=== PATIENT | female | born 1955 | race Caucasian/White ===

== ENCOUNTER 2020-03-01 21:10 | Observation (INO) ==
[2020-03-01 22:33] LABS: Basophils % 0.2 % (0.0-0.8); Eosinophils # 0.1 10*3/uL (0.0-0.87); Eosinophils % 0.8 % (0.00-10.9); Hematocrit 32.4 VOL% (35.7-47.0); Hemoglobin 10.9 GM/DL (12.0-16.0); Immature Granulocytes % 0.7 %; Immature Granulocytes Absolute 0.07 #; Mean Corpuscular HGB Conc 33.6 GM/DL (32-36); Mean Corpuscular Volume 93.4 FL (87-102); Mean Platelet Volume 10.1 FL (9.6-12.0); Monocytes % 10.5 % (1.7-12.7); Neutrophils % 77.8 % (38.7-73.9); Platelet Count 233 T/CUMM (130-400); Red Blood Count 3.47 MC/CUMM (3.8-5.5); Red Cell Distribution Width 13.5 % (9.3-17.3); White Blood Count 10.2 T/CUMM (4-12)
[2020-03-01] MEDS ORDERED: ONDANSETRON 4 MG/2 ML VIAL IV STA (22:38)
[2020-03-01] MEDS ORDERED: MORPHINE 4 MG/1 ML VIAL IV STA (22:38)
[2020-03-01] MEDS ORDERED: NITROGLYCERIN 2% OINT 1 INCH/GM PACK TOP STA (22:38)
[2020-03-01] MEDS ORDERED: ASPIRIN 325 MG TABLET PO STA (22:38)
[2020-03-01 22:41] LABS: INR 1.1; PT Patient Result 11.4 SECS (9.8-11.9); Partial Thromboplastin Time 30.6 SECS (23.9-33.8)
[2020-03-01 23:30] LABS: Albumin 3.4 G/DL (3.4-5.0); Bilirubin,Total 2.8 MG/DL (0.2-1.0); Calcium 8.1 MG/DL (8.5-10.1); Total Protein 6.5 G/DL (6.4-8.3)
[2020-03-01] MEDS ORDERED: POTASSIUM CHLORIDE 20 MEQ TABLET PO STA (23:32)
[2020-03-02] MEDS ORDERED: DEXTROSE 50% 25 GM/50 ML VIAL IV PRN (01:00)
[2020-03-02] MEDS ORDERED: ONDANSETRON 4 MG/2 ML VIAL IV PRN (01:00)
[2020-03-02] MEDS ORDERED: GLUCAGON 1 MG VIAL IM PRN (01:00)
[2020-03-02] MEDS ORDERED: NITROGLYCERIN SL 0.4 MG TABLET SL PRN ×2 (01:00→11:14)
[2020-03-02] MEDS ORDERED: MORPHINE 4 MG/1 ML VIAL IV PRN (01:00)
[2020-03-02 03:31] LABS: Troponin I 0.069 NG/ML (0.00-0.045)
[2020-03-02 06:17] LABS: Troponin I 0.062 NG/ML (0.00-0.045)
[2020-03-02] MEDS ORDERED: ATORVASTATIN 40 MG TABLET PO SCH (09:00)
[2020-03-02 09:41] LABS: Osmolality,Calculated 273.7 MOS/KG (273-304)
[2020-03-02] MEDS ORDERED: POTASSIUM CHLORIDE 20 MEQ TABLET PO ONE (11:16)
[2020-03-02] MEDS ORDERED: ATORVASTATIN 80 MG TABLET PO SCH (11:30)
[2020-03-02] MEDS ORDERED: METOPROLOL SUCCINATE XL 25 MG TABLET PO SCH (11:30)
[2020-03-02] MEDS ORDERED: ASPIRIN EC 81 MG TABLET PO SCH (11:30)
[2020-03-02] MEDS ORDERED: TICAGRELOR 90 MG TABLET PO SCH (11:30)
[2020-03-02 16:43] VITALS: BP 142/82
[2020-03-02 16:54] LABS: Basophils % 0.3 % (0.0-0.8); Eosinophils # 0.1 10*3/uL (0.0-0.87); Eosinophils % 1.5 % (0.00-10.9); Hematocrit 33.3 VOL% (35.7-47.0); Hemoglobin 10.8 GM/DL (12.0-16.0); Immature Granulocytes % 0.7 %; Immature Granulocytes Absolute 0.07 #; Mean Corpuscular HGB Conc 32.4 GM/DL (32-36); Mean Corpuscular Volume 95.4 FL (87-102); Mean Platelet Volume 10.2 FL (9.6-12.0); Monocytes % 9.3 % (1.7-12.7); Neutrophils % 77.2 % (38.7-73.9); Platelet Count 222 T/CUMM (130-400); Red Blood Count 3.49 MC/CUMM (3.8-5.5); Red Cell Distribution Width 13.6 % (9.3-17.3); White Blood Count 9.4 T/CUMM (4-12)
[2020-03-02 17:37] LABS: Eosinophils 2 % (0-10); Lymphocytes 18 % (20-55); Polychromasia Few; Segmented Neutrophils 79 % (50-85); Total Cells Counted 100
[2020-03-02 17:38] LABS: Anisocytosis Slight; Macrocytosis Slight; Microcytosis Slight; Platelet Estimate Normal; Reactive Lymphocytes 1+
[2020-03-02 17:42] LABS: Folate 18.6 NG/ML (5.4-24.0); Vitamin B12 > 2000 PG/ML (211-911)
[2020-03-02] MEDS ORDERED: FERROUS SULFATE 325 MG TABLET PO SCH (21:00)
== END 2020-03-02 17:43 | disposition home or self-care (01) ==
LOC: N.ED 21:10 → N.EDINP 21:10 → N.5E 03-02 03:34 → N.EDINP 03-02 16:04 → N.TELES 03-02 16:24
PROVIDERS: ADMIT Internal Medicine; ATTEND Internal Medicine